=== PATIENT | female | born 2000 | race Caucasian/White ===

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

== ENCOUNTER 2020-09-03 04:09 | Emergency (ER) | payer OTHER ==
[2020-09-03 04:35] VITALS: BP 131/85; PULSE 89; RESP 16; TEMP 99.3
[2020-09-03] MEDS ORDERED: SODIUM CHLORIDE 0.9% 1,000 ML IV STA (04:37)
--- NOTE | 2020-09-03 04:38 | ED ---
Overdose HPI - General Chief Complaint: Overdose Stated Complaint: overdose Time Seen by Provider: 09/03/20 04:35 Source: patient - History of Present Illness Initial Comments: Ching is a 19yo female who presents to the emergency department today for evaluation after taking excessive Motrin. Patient reports that she's been suffering from dental pain she hasn't been able to follow up with a dentist, t his evening she been drinking alcohol she became agitated she states over the course of the evening she took 20-30 tablets of [id number] ibuprofen. Patient reports she's been feeling well and no nausea, vomiting, no seizure activity or any adverse reactions.patient adamantly denies any intent to hurt herself and states that that when she came to the ER if she became concerned because she knew she had taken too much and she was being stupid. - Related Data Home Medications Medication Instructions Recorded Confirmed Acetaminophen-Codeine 300-30mg 1 tab PO BID PRN 06/26/19 06/26/19 [Tylenol w/codeine #3] Previous Rx's Medication Instructions Recorded Ibuprofen [Motrin] 600 mg PO Q8HR PRN #20 tab 06/26/19 Penicillin V Potassium [Pen Vee K] 500 mg PO Q6H 10 Days #40 tablet 06/26/19 Allergies Allergy/AdvReac Type Severity Reaction Status Date / Time poison gladis extract Allergy Swelling Verified 06/26/19 08:55 mold AdvReac Dyspnea Verified 06/26/19 08:55 pollen extracts AdvReac Dyspnea Verified 06/26/19 08:55 Review of Systems ROS Statement: Those systems with pertinent positive or pertinent negative responses have been documented in the HPI. ROS Other: All systems not noted in ROS Statement are negative. Past Medical History Past Medical History: Asthma Additional Past Medical History / Comment(s): has two ureters with left kidney, frequent uti ,anemia History of Any Multi-Drug Resistant Organisms: None Reported Past Surgical History: No Surgical Hx Reported Past Psychological History: No Psychological Hx Reported Smoking Status: Current every day smoker, Vaper Past Alcohol Use History: Occasional Past Drug Use History: Marijuana General Exam - General Exam Comments Initial Comments: Physical Exam GENERAL: Patient is well-developed and well-nourished. Patient is nontoxic and well-hydrated and is in no distress. HENT: Normocephalic, Atraumatic. EYES: PERRL, EOMI PULMONARY: Unlabored respirations. CARDIOVASCULAR: RRR Warm and well perfused extremities ABDOMEN: Non-distended soft nontender SKIN: No rashes or bruising : Deferred NEUROLOGIC: Alert and oriented Normal speech Normal gait MUSCULOSKELETAL: Moving all extremities with no apparent injury PSYCHIATRIC: No SI/HI Course Vital Signs 09/03/20 04:26 Temperature 99.3 F Pulse Rate 89 Respiratory 16 Rate Blood Pressure 131/85 O2 Sat by Pulse 100 Oximetry Medical Decision Making - Medical Decision Making the patient was seen and evaluated, history is obtained from the patient and significant other bedside Patient admitted taking somewhere between 20 and 3200 mg ibuprofen, does admit to having had some alcohol earlier in the night denies other medications denies any intent to hurt herself Labs were obtained and lactic acid was mildly elevated no other significant acute abnormalities patient is chronically anemic Patient received IV fluids she remained asymptomatic she comfortable with plan for discharge home - Lab Data Result diagrams: 09/03/20 04:55 09/03/20 04:55 Lab Results 09/03/20 09/03/20 09/03/20 Range/Units 04:55 04:55 04:55 WBC 8.1 (4.0-11.0) k/uL RBC 4.19 (3.80-5.40) m/uL Hgb 8.8 L (11.4-16.0) gm/dL Hct 29.3 L (34.0-46.0) % MCV 70.0 L (80.0-100.0) fL MCH 21.0 L (25.0-35.0) pg MCHC 30.0 L (31.0-37.0) g/dL RDW 17.8 H (11.5-15.5) % Plt Count 272 (150-450) k/uL Neutrophils % 65 % Lymphocytes % 30 % Monocytes % 3 % Eosinophils % 0 % Basophils % 0 % Neutrophils # 5.3 (1.3-7.7) k/uL Lymphocytes # 2.4 (1.0-4.8) k/uL Monocytes # 0.2 (0-1.0) k/uL Eosinophils # 0.0 (0-0.7) k/uL Basophils # 0.0 (0-0.2) k/uL Hypochromasia Marked Poikilocytosis Slight Anisocytosis Slight Microcytosis Marked PT 10.2 (9.0-12.0) sec INR 1.0 (<1.2) Sodium (137-145) mmol/L Potassium (3.5-5.1) mmol/L Chloride (98-107) mmol/L Carbon Dioxide (22-30) mmol/L Anion Gap mmol/L BUN (7-17) mg/dL Creatinine (0.52-1.04) mg/dL Est GFR (CKD-EPI)AfAm (>60 ml/min/1.73 sqM) Est GFR (CKD-EPI)NonAf (>60 ml/min/1.73 sqM) Glucose (74-99) mg/dL Lactic Ac Sepsis Rflx Plasma Lactic Acid [place] (0.7-2.0) mmol/L Calcium (8.4-10.2) mg/dL Total Bilirubin (0.2-1.3) mg/dL AST (14-36) U/L ALT (4-34) U/L Alkaline Phosphatase (38-126) U/L Total Protein (6.3-8.2) g/dL Albumin (3.5-5.0) g/dL Lipase (23-300) U/L Urine Color Yellow Urine Appearance Cloudy H (Clear) Urine pH 5.5 (5.0-8.0) Ur Specific [place] 1.014 (1.001-1.035) Urine Protein 1+ H (Negative) Urine Glucose (UA) Negative (Negative) Urine Ketones 1+ H (Negative) Urine Blood Trace H (Negative) Urine Nitrite Negative (Negative) Urine Bilirubin Negative (Negative) Urine Urobilinogen <2.0 (<2.0) mg/dL Ur Leukocyte Esterase Negative (Negative) Urine WBC 2 (0-5) /hpf Ur Squamous Epith Cells 7 H (0-4) /hpf Hyaline Casts 17 H (0-2) /lpf Granular Casts 7 (0) /lpf Urine Mucus Many H (None) /hpf Urine HCG, Qual (Not Detectd) Salicylates mg/dL Urine Opiates Screen Not Detected (NotDetected) Ur Oxycodone Screen Not Detected (NotDetected) Urine Methadone Screen Not Detected (NotDetected) Ur Propoxyphene Screen Not Detected (NotDetected) Acetaminophen ug/mL Ur Barbiturates Screen Not Detected (NotDetected) U Tricyclic Antidepress Not Detected (NotDetected) Ur Phencyclidine Scrn Not Detected (NotDetected) Ur Amphetamines Screen Not Detected (NotDetected) U Methamphetamines Scrn Not Detected (NotDetected) U Benzodiazepines Scrn Not Detected (NotDetected) Urine Cocaine Screen Not Detected (NotDetected) U Marijuana (THC) Screen Detected H (NotDetected) Serum Alcohol mg/dL 09/03/20 09/03/20 09/03/20 Range/Units 04:55 04:55 04:55 WBC (4.0-11.0) k/uL RBC (3.80-5.40) m/uL Hgb (11.4-16.0) gm/dL Hct (34.0-46.0) % MCV (80.0-100.0) fL MCH (25.0-35.0) pg MCHC (31.0-37.0) g/dL RDW (11.5-15.5) % Plt Count (150-450) k/uL Neutrophils % % Lymphocytes % % Monocytes % % Eosinophils % % Basophils % % Neutrophils # (1.3-7.7) k/uL Lymphocytes # (1.0-4.8) k/uL Monocytes # (0-1.0) k/uL Eosinophils # (0-0.7) k/uL Basophils # (0-0.2) k/uL Hypochromasia Poikilocytosis Anisocytosis Microcytosis PT (9.0-12.0) sec INR (<1.2) Sodium 138 (137-145) mmol/L Potassium 4.2 (3.5-5.1) mmol/L Chloride 106 (98-107) mmol/L Carbon Dioxide 21 L (22-30) mmol/L Anion Gap 11 mmol/L BUN 13 (7-17) mg/dL Creatinine 0.78 (0.52-1.04) mg/dL Est GFR (CKD-EPI)AfAm >90 (>60 ml/min/1.73 sqM) Est GFR (CKD-EPI)NonAf >90 (>60 ml/min/1.73 sqM) Glucose 89 (74-99) mg/dL Lactic Ac Sepsis Rflx Plasma Lactic Acid [place] 3.3 H* (0.7-2.0) mmol/L Calcium 9.7 (8.4-10.2) mg/dL Total Bilirubin 0.5 (0.2-1.3) mg/dL AST 24 (14-36) U/L ALT 11 (4-34) U/L Alkaline Phosphatase 56 (38-126) U/L Total Protein 7.8 (6.3-8.2) g/dL Albumin 4.7 (3.5-5.0) g/dL Lipase 36 (23-300) U/L Urine Color Urine Appearance (Clear) Urine pH (5.0-8.0) Ur Specific [place] (1.001-1.035) Urine Protein (Negative) Urine Glucose (UA) (Negative) Urine Ketones (Negative) Urine Blood (Negative) Urine Nitrite (Negative) Urine Bilirubin (Negative) Urine Urobilinogen (<2.0) mg/dL Ur Leukocyte Esterase (Negative) Urine WBC (0-5) /hpf Ur Squamous Epith Cells (0-4) /hpf Hyaline Casts (0-2) /lpf Granular Casts (0) /lpf Urine Mucus (None) /hpf Urine HCG, Qual Not Detected (Not Detectd) Salicylates <1.0 mg/dL Urine Opiates Screen (NotDetected) Ur Oxycodone Screen (NotDetected) Urine Methadone Screen (NotDetected) Ur Propoxyphene Screen (NotDetected) Acetaminophen <10.0 ug/mL Ur Barbiturates Screen (NotDetected) U Tricyclic Antidepress (NotDetected) Ur Phencyclidine Scrn (NotDetected) Ur Amphetamines Screen (NotDetected) U Methamphetamines Scrn (NotDetected) U Benzodiazepines Scrn (NotDetected) Urine Cocaine Screen (NotDetected) U Marijuana (THC) Screen (NotDetected) Serum Alcohol 45 mg/dL 09/03/20 Range/Units 05:24 WBC (4.0-11.0) k/uL RBC (3.80-5.40) m/uL Hgb (11.4-16.0) gm/dL Hct (34.0-46.0) % MCV (80.0-100.0) fL MCH (25.0-35.0) pg MCHC (31.0-37.0) g/dL RDW (11.5-15.5) % Plt Count (150-450) k/uL Neutrophils % % Lymphocytes % % Monocytes % % Eosinophils % % Basophils % % Neutrophils # (1.3-7.7) k/uL Lymphocytes # (1.0-4.8) k/uL Monocytes # (0-1.0) k/uL Eosinophils # (0-0.7) k/uL Basophils # (0-0.2) k/uL Hypochromasia Poikilocytosis Anisocytosis Microcytosis PT (9.0-12.0) sec INR (<1.2) Sodium (137-145) mmol/L Potassium (3.5-5.1) mmol/L Chloride (98-107) mmol/L Carbon Dioxide (22-30) mmol/L Anion Gap mmol/L BUN (7-17) mg/dL Creatinine (0.52-1.04) mg/dL Est GFR (CKD-EPI)AfAm (>60 ml/min/1.73 sqM) Est GFR (CKD-EPI)NonAf (>60 ml/min/1.73 sqM) Glucose (74-99) mg/dL Lactic Ac Sepsis Rflx Y Plasma Lactic Acid [place] (0.7-2.0) mmol/L Calcium (8.4-10.2) mg/dL Total Bilirubin (0.2-1.3) mg/dL AST (14-36) U/L ALT (4-34) U/L Alkaline Phosphatase (38-126) U/L Total Protein (6.3-8.2) g/dL Albumin (3.5-5.0) g/dL Lipase (23-300) U/L Urine Color Urine Appearance (Clear) Urine pH (5.0-8.0) Ur Specific [place] (1.001-1.035) Urine Protein (Negative) Urine Glucose (UA) (Negative) Urine Ketones (Negative) Urine Blood (Negative) Urine Nitrite (Negative) Urine Bilirubin (Negative) Urine Urobilinogen (<2.0) mg/dL Ur Leukocyte Esterase (Negative) Urine WBC (0-5) /hpf Ur Squamous Epith Cells (0-4) /hpf Hyaline Casts (0-2) /lpf Granular Casts (0) /lpf Urine Mucus (None) /hpf Urine HCG, Qual (Not Detectd) Salicylates mg/dL Urine Opiates Screen (NotDetected) Ur Oxycodone Screen (NotDetected) Urine Methadone Screen (NotDetected) Ur Propoxyphene Screen (NotDetected) Acetaminophen ug/mL Ur Barbiturates Screen (NotDetected) U Tricyclic Antidepress (NotDetected) Ur Phencyclidine Scrn (NotDetected) Ur Amphetamines Screen (NotDetected) U Methamphetamines Scrn (NotDetected) U Benzodiazepines Scrn (NotDetected) Urine Cocaine Screen (NotDetected) U Marijuana (THC) Screen (NotDetected) Serum Alcohol mg/dL - EKG Data -: EKG Interpreted by Me EKG Comments: EKG was obtained due to complaint of overdose EKG obtained at 5:03 AM, rate is 83 rhythm is sinus tachycardia normal axis, normal intervals, SC 1:30, conversant 6 QTC [address] elevations or depressions no evidence of acute ischemia infarction or arrhythmia Disposition Clinical Impression: Motrin overdose Disposition: HOME SELF-CARE Condition: Stable Instructions (If sedation given, give patient instructions): Adult Overdose (ED) Is patient prescribed a controlled substance at d/c from ED?: No Referrals: None,Stated [Primary Care Provider] - 1-2 days
[2020-09-03 05:09] LABS: Appearance,Urine Cloudy (Clear); Bilirubin,Urine Negative (Negative); Blood,Urine Trace (Negative); Color,Urine Yellow; Glucose,Urine (UA) Negative (Negative); Granular Casts,Urine 7 /lpf (0); Hyaline Casts,Urine 17 /lpf (0-2); Ketones,Urine 1+ (Negative); Leukocyte Esterase,Urine Negative (Negative); Mucus,Urine Many /hpf; Nitrite,Urine Negative (Negative); PH, Urine 5.5 (5.0-8.0); Protein,Urine 1+ (Negative); Specific Gravity,Urine 1.014 (1.001-1.035); Squamous Epithelial Cell,Urine 7 /hpf (0-4); Urobilinogen,Urine <2.0 mg/dL (<2.0); WBC,Urine 2 /hpf (0-5)
[2020-09-03 05:17] LABS: ALT 11 U/L (4-34); AST 24 U/L (14-36); Acetaminophen <10.0 ug/mL; African American GFR (CKD) >90 (>60 ml/min/1.73 sqM); Albumin 4.7 g/dL (3.5-5.0); Alcohol 45 mg/dL; Alkaline Phosphatase 56 U/L (38-126); Anion Gap 11 mmol/L; Blood Urea Nitrogen 13 mg/dL (7-17); Calcium 9.7 mg/dL (8.4-10.2); Carbon Dioxide 21 mmol/L (22-30); Chloride 106 mmol/L (98-107); Glucose 89 mg/dL (74-99); Lipase 36 U/L (23-300); Non-African American GFR(CKD) >90 (>60 ml/min/1.73 sqM); Potassium 4.2 mmol/L (3.5-5.1); Salicylate <1.0 mg/dL; Sodium 138 mmol/L (137-145); Total Bilirubin 0.5 mg/dL (0.2-1.3); Total Protein 7.8 g/dL (6.3-8.2)
[2020-09-03 05:18] LABS: Amphetamine Screen,Urine Not Detected (NotDetected); Barbiturate Screen,Urine Not Detected (NotDetected); Benzodiazepines Screen,Urine Not Detected (NotDetected); Cocaine Screen,Urine Not Detected (NotDetected); Methadone Screen, Urine Not Detected (NotDetected); Opiate Screen,Urine Not Detected (NotDetected); Oxycodone Screen, Urine Not Detected (NotDetected); Phencyclidine Screen,Urine Not Detected (NotDetected); Tricyclic Antidepressant,Urine Not Detected (NotDetected); Urn Cannabinoid Scrn Detected (NotDetected)
[2020-09-03 05:21] LABS: Prothrombin Time 10.2 sec (9.0-12.0)
[2020-09-03 05:29] LABS: Anisocytosis Slight; Basophils % (A) 0 %; Eosinophils % (A) 0 %; HCT 29.3 % (34.0-46.0); HGB 8.8 gm/dL (11.4-16.0); Hypochromasia Marked; Lymphocytes # (A) 2.4 k/uL (1.0-4.8); Lymphocytes % (A) 30 %; Mean Platelet Volume 7.7; Microcytosis Marked; Monocytes # (A) 0.2 k/uL (0-1.0); Monocytes % (A) 3 %; Neutrophils # (A) 5.3 k/uL (1.3-7.7); Neutrophils % (A) 65 %; Platelet Count 272 k/uL (150-450); Poikilocytosis Slight; RBC 4.19 m/uL (3.80-5.40); RDW 17.8 % (11.5-15.5); WBC 8.1 k/uL (4.0-11.0)
== END 2020-09-03 06:10 | disposition home or self-care (01) ==
LOC: EC 04:09
DX: T39.311A Poisoning by propionic acid derivatives, accidental (unintentional), initial encounter (principal); D64.9 Anemia, unspecified; R74.02 Elevation of levels of lactic acid dehydrogenase [LDH]; F17.290 Nicotine dependence, other tobacco product, uncomplicated; Z91.048 Other nonmedicinal substance allergy status
CPT/HCPCS: 36415; 80053; 80306; 80320; 80329; 81001; 81025; 83520; 83605; 83690; 85025; 85610; 93005; 96360; 99284

== ENCOUNTER 2020-10-02 16:22 | Emergency (ER) | payer OTHER ==
[2020-10-02 16:38] VITALS: BP 112/75; PULSE 107; RESP 18; TEMP 98.9
[2020-10-02] MEDS ORDERED: FLUCONAZOLE 150 MG TAB PO STA (18:48)
[2020-10-02] MEDS ORDERED: metroNIDAZOLE 500 MG TAB PO STA (18:49)
[2020-10-02] MEDS ORDERED: KETOROLAC 15 MG/ML 1 ML VIAL IM STA (18:52)
--- NOTE | 2020-10-02 18:52 | ED ---
Female Urogenital HPI - General Chief complaint: Urogenital Stated complaint: Female Time Seen by Provider: 10/02/20 17:37 Source: patient Mode of arrival: ambulatory Limitations: no limitations - History of Present Illness Initial comments: Patient is a 19-year-old female with past medical history of asthma who presents emergency Department with reported vaginal discharge. Patient states she is concerned for yeast or bacterial vaginosis. States she's had significant crampy white discharge with an odor. Wants to be tested for sexy transmitted infections however does not believe she has any. Patient denies dysuria, hematuria or difficulty voiding. Denies any constipation, diarrhea, melenic stools or hematochezia. No concern for . Patient is also requesting iron studies that she has a history of anemia. Does not have a primary care doctor. No other alleviating, Perceptin or modifying factors - Related Data Home Medications Medication Instructions Recorded Confirmed Acetaminophen-Codeine 300-30mg 1 tab PO BID PRN 06/26/19 06/26/19 [Tylenol w/codeine #3] Previous Rx's Medication Instructions Recorded Ibuprofen [Motrin] 600 mg PO Q8HR PRN #20 tab 06/26/19 Penicillin V Potassium [Pen Vee K] 500 mg PO Q6H 10 Days #40 tablet 06/26/19 Fluconazole [Diflucan] 150 mg PO DAILY #2 tab 10/02/20 Fluconazole [Diflucan] 150 mg PO DAILY #2 tab 10/02/20 metroNIDAZOLE [Flagyl] 500 mg PO BID #14 tab 10/02/20 Allergies Allergy/AdvReac Type Severity Reaction Status Date / Time poison gladis extract Allergy Swelling Verified 06/26/19 08:55 mold AdvReac Dyspnea Verified 06/26/19 08:55 pollen extracts AdvReac Dyspnea Verified 06/26/19 08:55 Review of Systems ROS Statement: Those systems with pertinent positive or pertinent negative responses have been documented in the HPI. ROS Other: All systems not noted in ROS Statement are negative. Past Medical History Past Medical History: Asthma Additional Past Medical History / Comment(s): has two ureters with left kidney, frequent uti ,anemia History of Any Multi-Drug Resistant Organisms: None Reported Past Surgical History: No Surgical Hx Reported Past Psychological History: No Psychological Hx Reported Smoking Status: Current every day smoker, Vaper Past Alcohol Use History: Occasional Past Drug Use History: Marijuana General Exam Limitations: no limitations Course Vital Signs 10/02/20 16:35 Temperature 98.9 F Pulse Rate 107 H Respiratory 18 Rate Blood Pressure 112/75 O2 Sat by Pulse 99 Oximetry Medical Decision Making - Medical Decision Making On arrival patient is placed into room 16. A thorough history and physical exam was performed. Pelvic exam was performed and cultures were taken patient is negative for Trichomonas. Urinalysis is not a clean catch. Patient is given a dose of Flagyl and Diflucan in the emergency department. Patient will be placed on 7 days worth of Flagyl. Instructed not to drink while taking it. Patient is also requesting additional dose of Diflucan to be taken at the end of her antibiotic course. This is also supplied to the patient. Instructed follow up with her primary care physician for iron studies. Return to the emergency room for any new or worsening symptoms per patient agreed to this and she was discharged home in stable condition - Lab Data Lab Results 10/02/20 10/02/20 10/02/20 Range/Units 18:32 18:32 18:52 Urine Color Yellow Urine Appearance Cloudy H (Clear) Urine pH 7.0 (5.0-8.0) Ur Specific [place] 1.022 (1.001-1.035) Urine Protein Trace H (Negative) Urine Glucose (UA) Negative (Negative) Urine Ketones Negative (Negative) Urine Blood Negative (Negative) Urine Nitrite Negative (Negative) Urine Bilirubin Negative (Negative) Urine Urobilinogen <2.0 (<2.0) mg/dL Ur Leukocyte Esterase Large H (Negative) Urine RBC 2 (0-5) /hpf Urine WBC 4 (0-5) /hpf Ur Squamous Epith Cells 31 H (0-4) /hpf Urine Bacteria Occasional H (None) /hpf Urine Mucus Occasional H (None) /hpf Urine HCG, Qual Not Detected (Not Detectd) Trichomonas Ag (Rapid) Negative (Negative) Disposition Clinical Impression: Vaginal discharge, Sherrell vaginitis, Bacterial vaginosis Disposition: HOME SELF-CARE Condition: Stable Instructions (If sedation given, give patient instructions): Vaginal Discharge (ED) Additional Instructions: We will call you with any culture results that come back positive. Please follow-up with your primary care doctor. Return to the emergency room for any new or worsening symptoms Prescriptions: Fluconazole [Diflucan] 150 mg PO DAILY #2 tab Fluconazole [Diflucan] 150 mg PO DAILY #2 tab metroNIDAZOLE [Flagyl] 500 mg PO BID #14 tab Is patient prescribed a controlled substance at d/c from ED?: No Referrals: None,Stated [Primary Care Provider] - 1-2 days Time of Disposition: 19:25
[2020-10-02 19:11] LABS: Appearance,Urine Cloudy (Clear); Bacteria,Urine Occasional /hpf; Bilirubin,Urine Negative (Negative); Blood,Urine Negative (Negative); Color,Urine Yellow; Glucose,Urine (UA) Negative (Negative); Ketones,Urine Negative (Negative); Leukocyte Esterase,Urine Large (Negative); Mucus,Urine Occasional /hpf; Nitrite,Urine Negative (Negative); Protein,Urine Trace (Negative); RBC,Urine 2 /hpf (0-5); Specific Gravity,Urine 1.022 (1.001-1.035); Squamous Epithelial Cell,Urine 31 /hpf (0-4); Urobilinogen,Urine <2.0 mg/dL (<2.0); WBC,Urine 4 /hpf (0-5)
[2020-10-03 14:48] LABS: C. trachomatis,PCR Negative (Neg,Equiv); Chlamydia trachomatis Source Vagina; N. gonorrhoeae,PCR Negative (Neg,Equiv); Neisseria Source Vagina
== END 2020-10-02 19:41 | disposition home or self-care (01) ==
LOC: EC 16:22
DX: B37.3 Candidiasis of vulva and vagina (principal); N76.0 Acute vaginitis; F17.290 Nicotine dependence, other tobacco product, uncomplicated; Z91.048 Other nonmedicinal substance allergy status
CPT/HCPCS: 81001; 81025; 87808; 87491; 87591; 87070; 99283; 96372; J1885

== ENCOUNTER 2021-08-11 18:17 | Emergency (ER) | payer OTHER ==
[2021-08-11 18:56] VITALS: BP 98/55; PULSE 74; RESP 20; TEMP 98.6
[2021-08-11] MEDS ORDERED: BUPIVACAINE (PF) 0.5% 30 ML VIAL SQ STA (20:17)
[2021-08-11] MEDS ORDERED: ACET/COD 300 MG/30 MG STARTER PACK 6 TAB BTL PO STA (20:18)
[2021-08-11] MEDS ORDERED: PENICILLIN VK 500MG STARTER 4 TAB BTL PO STA (20:18)
[2021-08-11] MEDS ORDERED: LIDOCAINE 1% INJ 10MG/ML (20 ML MDV) SQ ONE (20:21)
--- NOTE | 2021-08-11 20:23 | ED ---
General Adult HPI - General Chief complaint: Dental/Oral Stated complaint: tooth pain Time Seen by Provider: 08/11/21 19:53 Source: patient, RN notes reviewed Mode of arrival: ambulatory Limitations: no limitations - History of Present Illness Initial comments: 20-year-old female presents to the emergency room for a chief complaint of dental pain. Patient reports she has had a fractured tooth for months. States that a month ago it started hurting. Patient states she is going to try to get into the dentist this week but hasn't yet. Patient is taking Motrin and Tylenol for pain and it is no longer helping. Patient is requesting a dental block and antibiotics.Patient has no other complaints at this time including shortness of breath, chest pain, abdominal pain, nausea or vomiting, headache, or visual changes. - Related Data Home Medications Medication Instructions Recorded Confirmed Acetaminophen-Codeine 300-30mg 1 tab PO BID PRN 06/26/19 06/26/19 [Tylenol w/codeine #3] Previous Rx's Medication Instructions Recorded Ibuprofen [Motrin] 600 mg PO Q8HR PRN #20 tab 06/26/19 Penicillin V Potassium [Pen Vee K] 500 mg PO Q6H 10 Days #40 tablet 06/26/19 Fluconazole [Diflucan] 150 mg PO DAILY #2 tab 10/02/20 Fluconazole [Diflucan] 150 mg PO DAILY #2 tab 10/02/20 metroNIDAZOLE [Flagyl] 500 mg PO BID #14 tab 10/02/20 Penicillin V Potassium [Pen Vee K] 500 mg PO Q6H 10 Days #40 tablet 08/11/21 Allergies Allergy/AdvReac Type Severity Reaction Status Date / Time poison gladis extract Allergy Swelling Verified 08/11/21 18:56 mold AdvReac Dyspnea Verified 08/11/21 18:56 pollen extracts AdvReac Dyspnea Verified 08/11/21 18:56 Review of Systems ROS Statement: Those systems with pertinent positive or pertinent negative responses have been documented in the HPI. ROS Other: All systems not noted in ROS Statement are negative. Past Medical History Past Medical History: Asthma Additional Past Medical History / Comment(s): has two ureters with left kidney, frequent uti ,anemia History of Any Multi-Drug Resistant Organisms: None Reported Past Surgical History: No Surgical Hx Reported Past Psychological History: No Psychological Hx Reported Smoking Status: Current every day smoker, Vaper Past Alcohol Use History: Occasional Past Drug Use History: Marijuana General Exam Limitations: no limitations General appearance: alert, in no apparent distress Head exam: Present: atraumatic Eye exam: Present: normal appearance, PERRL, EOMI. Absent: scleral icterus, conjunctival injection ENT exam: Present: normal exam, mucous membranes moist. Absent: normal oropharynx (Fractured tooth 14 noted) Neck exam: Present: normal inspection, full ROM Respiratory exam: Present: normal lung sounds bilaterally. Absent: respiratory distress, wheezes Cardiovascular Exam: Present: regular rate, normal rhythm, normal heart sounds Course Vital Signs 08/11/21 18:54 Temperature 98.6 F Pulse Rate 74 Respiratory 20 Rate Blood Pressure 98/55 O2 Sat by Pulse 97 Oximetry Procedures - Nerve Block Consent Obtained: verbal consent Local Anesthetic Used: Other (bupivicaine 0.5%) Side: left Intraoral Nerve Block: superior alveolar Procedure Successful: Yes Complications: none Patient Tolerated Procedure: well, no complications Medical Decision Making - Medical Decision Making She does have a fractured tooth 14 noted. No sublingual edema. Oropharynx is patent. Handling secretions without difficulty. No fevers or neck stiffness. Patient requested dental block which was performed. Did express pain relief. Patient was started on penicillin. She will follow up with dentist. She will return here to the emergency room. Disposition Clinical Impression: Pain, dental Disposition: HOME SELF-CARE Condition: Good Instructions (If sedation given, give patient instructions): Toothache (ED) Additional Instructions: Take antibiotic as directed. Take Motrin and Tylenol for pain. If pain is severe take Tylenol [address] machinery while taking this. Follow-up with dentist as soon as possible. Return to the emergency room for any worsening symptoms. [facility] [address] (existing clients only) New clients: [phone] 1st consult: $50 (includes XRs) Usually 30% less than private dentist for visits after. [employer] Have to pay $50 for Xrays and rest is covered [phone] Prescriptions: Penicillin V Potassium [Pen Vee K] 500 mg PO Q6H 10 Days #40 tablet Is patient prescribed a controlled substance at d/c from ED?: No Referrals: Chucky Frausto MD [STAFF PHYSICIAN] - 1-2 days Time of Disposition: 20:43
== END 2021-08-11 20:49 | disposition home or self-care (01) ==
LOC: EC 18:17
DX: K08.89 Other specified disorders of teeth and supporting structures (principal); J45.909 Unspecified asthma, uncomplicated; F17.290 Nicotine dependence, other tobacco product, uncomplicated; F12.90 Cannabis use, unspecified, uncomplicated; Z79.1 Long term (current) use of non-steroidal anti-inflammatories (NSAID)
CPT/HCPCS: 64450; 99282; J2001

== ENCOUNTER 2023-11-07 17:21 | Observation (INO) | payer OTHER ==
[2023-11-07 17:49] VITALS: RESP 18
[2023-11-07] MEDS ORDERED: SODIUM CHLORIDE 0.9% 1,000 ML IV STA (18:06)
--- NOTE | 2023-11-07 18:11 | ED ---
General Adult HPI - General Source: patient Mode of arrival: ambulatory Limitations: no limitations <Ayaan Mccabe - Last Filed: 11/07/23 22:23> <Dominique Jacobs - Last Filed: 11/08/23 23:40> - General Chief complaint: Seizure Stated complaint: Seizure Time Seen by Provider: 11/07/23 17:24 - History of Present Illness Initial comments: 22-year-old female presents with a chief complaint of seizure activity. Per p betty, has recently started using crack cocaine. States that she smoked some crack cocaine earlier and reportedly felt well after that. At around 4:30. She reports smoking more. States that she smoked more than her initial experience. States while smoking crack cocaine her friend said her eyes rolled back and she started shaking. States that this lasted for approximately a minute. Noted s ome confusion after that. However patient reports that she is now almost back to baseline. Patient does not recall this. States unable to recall the events shortly after this as well. States otherwise is been feeling well over the past few days. Currently denies any symptoms. No other complaints. She has no history of seizures in the past. (Ayaan Mccabe) - Related Data Home Medications Medication Instructions Recorded Confirmed No Known Home Medications 11/07/23 11/07/23 Allergies Allergy/AdvReac Type Severity Reaction Status Date / Time poison gladis extract Allergy Swelling Verified 11/07/23 21:05 mold AdvReac Dyspnea Verified 11/07/23 21:05 pollen extracts AdvReac Dyspnea Verified 11/07/23 21:05 Review of Systems ROS Other: All systems not noted in ROS Statement are negative. <Ayaan Mccabe - Last Filed: 11/07/23 22:23> ROS Other: All systems not noted in ROS Statement are negative. <Dominique Jacobs - Last Filed: 11/08/23 23:40> ROS Statement: Those systems with pertinent positive or pertinent negative responses have been documented in the HPI. Past Medical History Past Medical History: Asthma Additional Past Medical History / Comment(s): has two ureters with left kidney, frequent uti ,anemia History of Any Multi-Drug Resistant Organisms: None Reported Past Surgical History: No Surgical Hx Reported Past Psychological History: No Psychological Hx Reported Smoking Status: Current every day smoker, Vaper Past Alcohol Use History: Occasional Past Drug Use History: Marijuana <Ayaan Mccabe - Last Filed: 11/07/23 22:23> General Exam Limitations: no limitations General appearance: alert, in no apparent distress Eye exam: Present: PERRL, EOMI, other (Pupils dilated at 7 mm however responsive) ENT exam: Present: mucous membranes moist Neck exam: Present: normal inspection Respiratory exam: Present: normal lung sounds bilaterally Cardiovascular Exam: Present: regular rate, normal rhythm GI/Abdominal exam: Present: soft (No Tenderness to palpation. No rebound guarding or rigidity.) Extremities exam: Present: normal inspection Neurological exam: Present: alert, oriented X3, CN II-XII intact (Finger to nose, heel to zee, rapid alternating hand movements intact) Psychiatric exam: Present: anxious Skin exam: Present: warm, dry <Ayaan Mccabe - Last Filed: 11/07/23 22:23> Course Vital Signs 11/07/23 11/07/23 11/08/23 17:27 20:00 09:11 Temperature 97.8 F 96.8 F L 97.9 F Pulse Rate 110 H 104 H 96 Respiratory 18 18 18 Rate Blood Pressure 124/78 114/72 112/68 O2 Sat by Pulse 95 98 99 Oximetry 11/08/23 14:22 Temperature 97.9 F Pulse Rate 86 Respiratory 18 Rate Blood Pressure 136/78 O2 Sat by Pulse 97 Oximetry Medical Decision Making - Lab Data Result diagrams: 11/07/23 18:19 11/07/23 18:19 <Ayaan Mccabe - Last Filed: 11/07/23 22:23> - Lab Data Result diagrams: 11/07/23 18:19 11/07/23 18:19 <Dominique Jacobs - Last Filed: 11/08/23 23:40> - Medical Decision Making Was pt. sent in by a medical professional or institution (, PA, [facility], urgent care, hospital, or care home...) When possible be specific @ -No Did you speak to anyone other than the patient for history (EMS, parent, family, police, friend...)? What history was obtained from this source @ -No Did you review nursing and triage notes (agree or disagree)? Why? @ -I reviewed and agree with nursing and triage notes Were old charts reviewed (outside hosp., previous admission, EMS record, old EKG, old radiological studies, urgent care reports/EKG's, care home records)? Report findings @ -No old charts were reviewed Differential Diagnosis (chest pain, altered mental status, abdominal pain women, abdominal pain men, vaginal bleeding, weakness, fever, dyspnea, syncope, headache, dizziness, GI bleed, back pain, seizure, CVA, palpatations, mental health, musculoskeletal)? @ -Differential Seizure: Recurrent seizure disorder, febrile seizure, alcohol withdrawal, stimulants, meningitis, encephalitis, intercranial hemorrhage, intracranial tumor, stroke, eclampsia, thyrotoxicosis, hypocalcemia, hyponatremia, hypernatremia, hypomagnesemia, psychogenic, this is not meant to be an all-inclusive list. EKG interpreted by me (3pts min.). @ -As above X-rays interpreted by me (1pt min.). @ -None done CT interpreted by me (1pt min.). @ -CT brain interpreted by me show no evidence of acute finding. U/S interpreted by me (1pt. min.). @ -None done What testing was considered but not performed or refused? (CT, X-rays, U/S, labs)? Why? @ -None What meds were considered but not given or refused? Why? @ -None Did you discuss the management of the patient with other professionals (professionals i.e. , PA, [facility], lab, RT, psych nurse, social sciences professor, burglar alarm assembler, teacher, child support case officer, transplant case manager)? Give summary @ -Case discussed with Dr. Damico, who is in agreement with consult. Case discussed with Dr. Cochran, who accepts admission to observation. Was smoking cessation discussed for >3mins.? @ -No Was critical care preformed (if so, how long)? @ -No Were there social determinants of health that impacted care today? How? (Homelessness, low income, unemployed, alcoholism, drug addiction, transportation, low edu. Level, literacy, decrease access to med. care, [place] [facility], rehab)? @ -Crack cocaine use Was there de-escalation of care discussed even if they declined (Discuss DNR or withdrawal of care, Hospice)? DNR status @ -No What co-morbidities impacted this encounter? (DM, HTN, Smoking, COPD, CAD, Cancer, CVA, ARF, Chemo, Hep., AIDS, mental health diagnosis, sleep apnea, morbid obesity)? @ -Crack cocaine use Was patient admitted / discharged? Hospital course, mention meds given and route, prescriptions, significant lab abnormalities, going to OR and other pertinent info. @ -Admission 22-year-old female with no past medical history presented to the ED with chief complaint of seizure. Patient smoked crack cocaine today. States that she felt well after smoking her initial dose so she states continued to smoke more. While she was smoking, per friend patient's eyes rolled back and she seizure like activity. Exam finding significant for evidence of intraoral trauma with lacerations of the lip and tongue. Neurologic exam at this time unremarkable. Laboratory studies reviewed. CBC significant for a white blood cell count at 11.2. Neutrophils elevated at 8.4. Lactic acid elevated at 6.1. UA un remarkable. Toxicology screen shows positive for benzodiazepines, cocaine, THC. Alcohol less than 10. Urine hCG negative. Undiagnosed new problem with uncertain prognosis? @ -No Drug Therapy requiring intensive monitoring for toxicity (Heparin, Nitro, Insulin, Cardizem)? @ -No Were any procedures done? @ -No Diagnosis/symptom? @ -New onset seizure Acute, or Chronic, or Acute on Chronic? @ -Acute Uncomplicated (without systemic symptoms) or Complicated (systemic symptoms)? @ -Complicated Side effects of treatment? @ -No Exacerbation, Progression, or Severe Exacerbation? @ -No Poses a threat to life or bodily function? How? (Chest pain, [place], CO, pneumonia, PE, COPD, DKA, ARF, appy, cholecystitis, CVA, Diverticulitis, Homicidal, Suicidal, threat to staff... and all critical care pts) @ -No (Ayaan Mccabe) - Lab Data Lab Results 11/07/23 11/07/23 11/07/23 Range/Units 18:19 18:19 18:19 WBC 11.2 H (3.8-10.6) k/uL RBC 3.85 (3.80-5.40) m/uL Hgb 11.7 (11.4-16.0) gm/dL Hct 34.7 (34.0-46.0) % MCV 90.1 (80.0-100.0) fL MCH 30.5 (25.0-35.0) pg MCHC 33.8 (31.0-37.0) g/dL RDW 15.0 (11.5-15.5) % Plt Count 185 (150-450) k/uL MPV 9.4 Neutrophils % 76 % Lymphocytes % 19 % Monocytes % 4 % Eosinophils % 0 % Basophils % 0 % Neutrophils # 8.4 H (1.3-7.7) k/uL Lymphocytes # 2.1 (1.0-4.8) k/uL Monocytes # 0.4 (0-1.0) k/uL Eosinophils # 0.0 (0-0.7) k/uL Basophils # 0.0 (0-0.2) k/uL Sodium 137 (137-145) mmol/L Potassium 3.9 (3.5-5.1) mmol/L Chloride 104 (98-107) mmol/L Carbon Dioxide 18 L (22-30) mmol/L Anion Gap 15 mmol/L BUN 12 (7-17) mg/dL Creatinine 0.59 (0.52-1.04) mg/dL Est GFR (CKD-EPI)AfAm >90 (>60 ml/min/1.73 sqM) Est GFR (CKD-EPI)NonAf >90 (>60 ml/min/1.73 sqM) Glucose 107 H (74-99) mg/dL Lactic Ac Sepsis Rflx Plasma Lactic Acid [place]arian (0.7-2.0) mmol/L Calcium 9.5 (8.4-10.2) mg/dL Magnesium 2.0 (1.6-2.3) mg/dL Total Bilirubin 0.4 (0.2-1.3) mg/dL AST 27 (14-36) U/L ALT 28 (4-34) U/L Alkaline Phosphatase 55 (38-126) U/L Ammonia (<30) umol/L Total Protein 7.4 (6.3-8.2) g/dL Albumin 4.6 (3.5-5.0) g/dL Urine Color Urine Appearance (Clear) Urine pH (5.0-8.0) Ur Specific [place] (1.001-1.035) Urine Protein (Negative) Urine Glucose (UA) (Negative) Urine Ketones (Negative) Urine Blood (Negative) Urine Nitrite (Negative) Urine Bilirubin (Negative) Urine Urobilinogen (<2.0) mg/dL Ur Leukocyte Esterase (Negative) Urine RBC (0-5) /hpf Urine WBC (0-5) /hpf Urine Mucus (None) /hpf Urine HCG, Qual (Not Detectd) Salicylates <1.0 mg/dL Urine Opiates Screen Not Detected (NotDetected) Ur Oxycodone Screen Not Detected (NotDetected) Urine Methadone Screen Not Detected (NotDetected) Acetaminophen <10.0 ug/mL Ur Barbiturates Screen Not Detected (NotDetected) U Tricyclic Antidepress Not Detected (NotDetected) Ur Phencyclidine Scrn Not Detected (NotDetected) Ur Amphetamines Screen Not Detected (NotDetected) U Methamphetamines Scrn Not Detected (NotDetected) U Benzodiazepines Scrn Detected H (NotDetected) [place] <0.2 mmol/L Urine Cocaine Screen Detected H (NotDetected) U Marijuana (THC) Screen Detected H (NotDetected) Serum Alcohol <10 mg/dL 11/07/23 11/07/23 11/07/23 Range/Units 18:19 18:19 18:45 WBC (3.8-10.6) k/uL RBC (3.80-5.40) m/uL Hgb (11.4-16.0) gm/dL Hct (34.0-46.0) % MCV (80.0-100.0) fL MCH (25.0-35.0) pg MCHC (31.0-37.0) g/dL RDW (11.5-15.5) % Plt Count (150-450) k/uL MPV Neutrophils % % Lymphocytes % % Monocytes % % Eosinophils % % Basophils % % Neutrophils # (1.3-7.7) k/uL Lymphocytes # (1.0-4.8) k/uL Monocytes # (0-1.0) k/uL Eosinophils # (0-0.7) k/uL Basophils # (0-0.2) k/uL Sodium (137-145) mmol/L Potassium (3.5-5.1) mmol/L Chloride (98-107) mmol/L Carbon Dioxide (22-30) mmol/L Anion Gap mmol/L BUN (7-17) mg/dL Creatinine (0.52-1.04) mg/dL Est GFR (CKD-EPI)AfAm (>60 ml/min/1.73 sqM) Est GFR (CKD-EPI)NonAf (>60 ml/min/1.73 sqM) Glucose (74-99) mg/dL Lactic Ac Sepsis Rflx Y Plasma Lactic Acid [place]arian 6.1 H* (0.7-2.0) mmol/L Calcium (8.4-10.2) mg/dL Magnesium (1.6-2.3) mg/dL Total Bilirubin (0.2-1.3) mg/dL AST (14-36) U/L ALT (4-34) U/L Alkaline Phosphatase (38-126) U/L Ammonia <9 (<30) umol/L Total Protein (6.3-8.2) g/dL Albumin (3.5-5.0) g/dL Urine Color Colorless Urine Appearance Clear (Clear) Urine pH 5.5 (5.0-8.0) Ur Specific [place] 1.008 (1.001-1.035) Urine Protein Negative (Negative) Urine Glucose (UA) Negative (Negative) Urine Ketones Trace H (Negative) Urine Blood Moderate H (Negative) Urine Nitrite Negative (Negative) Urine Bilirubin Negative (Negative) Urine Urobilinogen <2.0 (<2.0) mg/dL Ur Leukocyte Esterase Negative (Negative) Urine RBC 1 (0-5) /hpf Urine WBC <1 (0-5) /hpf Urine Mucus Rare H (None) /hpf Urine HCG, Qual (Not Detectd) Salicylates mg/dL Urine Opiates Screen (NotDetected) Ur Oxycodone Screen (NotDetected) Urine Methadone Screen (NotDetected) Acetaminophen ug/mL Ur Barbiturates Screen (NotDetected) U Tricyclic Antidepress (NotDetected) Ur Phencyclidine Scrn (NotDetected) Ur Amphetamines Screen (NotDetected) U Methamphetamines Scrn (NotDetected) U Benzodiazepines Scrn (NotDetected) [place] mmol/L Urine Cocaine Screen (NotDetected) U Marijuana (THC) Screen (NotDetected) Serum Alcohol mg/dL 11/07/23 Range/Units 19:25 WBC (3.8-10.6) k/uL RBC (3.80-5.40) m/uL Hgb (11.4-16.0) gm/dL Hct (34.0-46.0) % MCV (80.0-100.0) fL MCH (25.0-35.0) pg MCHC (31.0-37.0) g/dL RDW (11.5-15.5) % Plt Count (150-450) k/uL MPV Neutrophils % % Lymphocytes % % Monocytes % % Eosinophils % % Basophils % % Neutrophils # (1.3-7.7) k/uL Lymphocytes # (1.0-4.8) k/uL Monocytes # (0-1.0) k/uL Eosinophils # (0-0.7) k/uL Basophils # (0-0.2) k/uL Sodium (137-145) mmol/L Potassium (3.5-5.1) mmol/L Chloride (98-107) mmol/L Carbon Dioxide (22-30) mmol/L Anion Gap mmol/L BUN (7-17) mg/dL Creatinine (0.52-1.04) mg/dL Est GFR (CKD-EPI)AfAm (>60 ml/min/1.73 sqM) Est GFR (CKD-EPI)NonAf (>60 ml/min/1.73 sqM) Glucose (74-99) mg/dL Lactic Ac Sepsis Rflx Plasma Lactic Acid [place] (0.7-2.0) mmol/L Calcium (8.4-10.2) mg/dL Magnesium (1.6-2.3) mg/dL Total Bilirubin (0.2-1.3) mg/dL AST (14-36) U/L ALT (4-34) U/L Alkaline Phosphatase (38-126) U/L Ammonia (<30) umol/L Total Protein (6.3-8.2) g/dL Albumin (3.5-5.0) g/dL Urine Color Urine Appearance (Clear) Urine pH (5.0-8.0) Ur Specific [place] (1.001-1.035) Urine Protein (Negative) Urine Glucose (UA) (Negative) Urine Ketones (Negative) Urine Blood (Negative) Urine Nitrite (Negative) Urine Bilirubin (Negative) Urine Urobilinogen (<2.0) mg/dL Ur Leukocyte Esterase (Negative) Urine RBC (0-5) /hpf Urine WBC (0-5) /hpf Urine Mucus (None) /hpf Urine HCG, Qual Not Detected (Not Detectd) Salicylates mg/dL Urine Opiates Screen (NotDetected) Ur Oxycodone Screen (NotDetected) Urine Methadone Screen (NotDetected) Acetaminophen ug/mL Ur Barbiturates Screen (NotDetected) U Tricyclic Antidepress (NotDetected) Ur Phencyclidine Scrn (NotDetected) Ur Amphetamines Screen (NotDetected) U Methamphetamines Scrn (NotDetected) U Benzodiazepines Scrn (NotDetected) [place] mmol/L Urine Cocaine Screen (NotDetected) U Marijuana (THC) Screen (NotDetected) Serum Alcohol mg/dL - EKG Data EKG Comments: She shows a sinus rhythm at [address] or T-wave changes. MD 123, QRS 95, QT/QTC 383/429. (Ayaan Mccabe) Disposition <Ayaan Mccabe - Last Filed: 11/07/23 22:23> <Dominique Jacobs - Last Filed: 11/08/23 23:40> Clinical Impression: Seizure Disposition: ADMITTED IP TO THIS HOSP Condition: Fair
[2023-11-07] MEDS ORDERED: LORazepam 2 MG/ML INJ IV PRN (18:19)
[2023-11-07 18:29] LABS: Basophils % (A) 0 %; Eosinophils % (A) 0 %; HCT 34.7 % (34.0-46.0); HGB 11.7 gm/dL (11.4-16.0); Lymphocytes # (A) 2.1 k/uL (1.0-4.8); Lymphocytes % (A) 19 %; MCH 30.5 pg (25.0-35.0); MCHC 33.8 g/dL (31.0-37.0); MCV 90.1 fL (80.0-100.0); Mean Platelet Volume 9.4; Monocytes # (A) 0.4 k/uL (0-1.0); Monocytes % (A) 4 %; Neutrophils # (A) 8.4 k/uL (1.3-7.7); Neutrophils % (A) 76 %; Platelet Count 185 k/uL (150-450); RBC 3.85 m/uL (3.80-5.40); WBC 11.2 k/uL (3.8-10.6)
--- NOTE | 2023-11-07 18:29 | CT ---
EXAMINATION TYPE: CT brain wo con DATE OF EXAM: 11/07/2023 COMPARISON: None INDICATION: seizure DLP: 1110.4 mGycm, Automated exposure control for dose reduction was used. CONTRAST: None CT of the brain is performed utilizing 3 mm thick sections through the posterior fossa and 3 mm thick sections through the remaining calvarium. Study is performed within 24 hours of arrival to the hosp ital. No abnormal hyperdensity is present to suggest an acute intracranial hemorrhage. No mass lesion is evident. No acute infarcts are evident. Ventricles and sulci are appropriate for the patient age. Paranasal sinuses and mastoid air cells within the [id number] are clear. IMPRESSION: 1. No acute intracranial process. Follow-up MRI can be performed as clinically indicated.
[2023-11-07 18:44] LABS: ALT 28 U/L (4-34); AST 27 U/L (14-36); Acetaminophen <10.0 ug/mL; African American GFR (CKD) >90 (>60 ml/min/1.73 sqM); Albumin 4.6 g/dL (3.5-5.0); Alcohol <10 mg/dL; Alkaline Phosphatase 55 U/L (38-126); Anion Gap 15 mmol/L; Blood Urea Nitrogen 12 mg/dL (7-17); Calcium 9.5 mg/dL (8.4-10.2); Carbon Dioxide 18 mmol/L (22-30); Chloride 104 mmol/L (98-107); Glucose 107 mg/dL (74-99); Lithium <0.2 mmol/L; Non-African American GFR(CKD) >90 (>60 ml/min/1.73 sqM); Potassium 3.9 mmol/L (3.5-5.1); Salicylate <1.0 mg/dL; Sodium 137 mmol/L (137-145); Total Bilirubin 0.4 mg/dL (0.2-1.3); Total Protein 7.4 g/dL (6.3-8.2)
[2023-11-07 18:45] LABS: Lactic Acid, Venous 6.1 mmol/L (0.7-2.0)
[2023-11-07 19:30] LABS: Appearance,Urine Clear (Clear); Bilirubin,Urine Negative (Negative); Blood,Urine Moderate (Negative); Color,Urine Colorless; Glucose,Urine (UA) Negative (Negative); Ketones,Urine Trace (Negative); Leukocyte Esterase,Urine Negative (Negative); Mucus,Urine Rare /hpf; Nitrite,Urine Negative (Negative); PH, Urine 5.5 (5.0-8.0); Protein,Urine Negative (Negative); RBC,Urine 1 /hpf (0-5); Specific Gravity,Urine 1.008 (1.001-1.035); Urobilinogen,Urine <2.0 mg/dL (<2.0); WBC,Urine <1 /hpf (0-5)
[2023-11-07 19:52] LABS: Amphetamine Screen,Urine Not Detected (NotDetected); Barbiturate Screen,Urine Not Detected (NotDetected); Benzodiazepines Screen,Urine Detected (NotDetected); Cocaine Screen,Urine Detected (NotDetected); Methadone Screen, Urine Not Detected (NotDetected); Opiate Screen,Urine Not Detected (NotDetected); Oxycodone Screen, Urine Not Detected (NotDetected); Phencyclidine Screen,Urine Not Detected (NotDetected); Tricyclic Antidepressant,Urine Not Detected (NotDetected); Urn Cannabinoid Scrn Detected (NotDetected)
[2023-11-07] MEDS ORDERED: SODIUM CHLORIDE 0.9% 2,000 ML IV STA (21:47)
[2023-11-07] MEDS ORDERED: NICOTINE 21MG/24HR PATCH TRANSDERM STA (22:10)
[2023-11-07] MEDS ORDERED: NALOXONE 0.4 MG/ML 1 ML VIAL IV PRN (22:26)
[2023-11-07] MEDS ORDERED: SODIUM CHLORIDE 0.9% 1,000 ML IV SCH (22:30)
[2023-11-08 09:07] LABS: Glucose,Whole Blood 86 mg/dL (70-110)
[2023-11-08] MEDS ORDERED: MAG HYDROX/AL HYDROX/SIMETH 30 ML CUP PO PRN (09:12)
[2023-11-08] MEDS ORDERED: ACETAMINOPHEN TAB 325 MG TAB PO PRN (09:12)
[2023-11-08] MEDS ORDERED: KETOROLAC 15 MG/ML 1 ML VIAL IVP PRN (09:12)
[2023-11-08 09:15] VITALS: TEMP 97.9
--- NOTE | 2023-11-08 13:11 | P.CNNES ---
History of Present Illness Consult date: 11/08/23 Requesting physician: Ayaan Mccabe Reason for Consult: New onset seizure History of Present Illness: Patient is a 22-year-old female came to the hospital by ambulance yesterday at 5:21 PM for new onset seizure. Patient states that yesterday she was with her friends, and did decent amount of drugs including cocaine, alcohol. She does not normally do that much amount and she did more than usual. She also was sleep deprived for 24 hours, stressed out and in a bad state of mind. Without any warning, she passed out and woke up to EMS people around her. She bit her tongue, but did not lose control of urine. Patient was brought to the hospital by ambulance. As per EMS flow sheet, when they arrived, found patient being held upright by her friend. Her friends on the scene, patient was sitting in the chair when she had sudden loss of consciousness, muscle rigidity, tremors and apnea. Patient has never had a seizure. Patient does not take any medication daily. Patient states she has had some beer today as well as used cocaine a few hours ago. Patient was postictal at the time EMS arrived, unable to hold herself upright with some confusion. EKG showed sinus tachycardia. Patient's vitals at the scene was blood pressure 141/84, pulse rate 111, respirations 18, saturation 99% and blood glucose 135. Blood test shows WBC 11.2 hemoglobin is normal platelets normal, Chem-20 is normal, lactate was elevated 6.1. Ammonia is normal. UA negative. Urine hCG negative. Urine drug screen positive for benzodiazepine, cocaine and marijuana. Blood alcohol level negative. CT head revealed no acute process. EKG shows sinus rhythm. Patient states that she has and about few times of drug use in her life since age 19. She never had any history of seizure or syncope in the past. At present she feels fine. She wants to go home. Review of Systems Completely negative. Denies any headache or any focal symptoms. Her lips are sore from the seizure. No chest pain, abdominal pain. Past Medical History Past Medical History: Asthma Additional Past Medical History / Comment(s): has two ureters with left kidney, frequent uti ,anemia History of Any Multi-Drug Resistant Organisms: None Reported Past Surgical History: No Surgical Hx Reported Past Psychological History: No Psychological Hx Reported Smoking Status: Current every day smoker, Vaper Past Alcohol Use History: Occasional Past Drug Use History: Marijuana Medications and Allergies Home Medications Medication Instructions Recorded Confirmed Type No Known Home Medications 11/07/23 11/07/23 History Allergies Allergy/AdvReac Type Severity Reaction Status Date / Time poison gladis extract Allergy Swelling Verified 11/07/23 21:05 mold AdvReac Dyspnea Verified 11/07/23 21:05 pollen extracts AdvReac Dyspnea Verified 11/07/23 21:05 Physical Examination - Vital Signs Vital Signs: Vital Signs Temp Pulse Resp BP Pulse Ox 11/08/23 09:11 97.9 F 96 18 112/68 99 11/07/23 20:00 96.8 F L 104 H 18 114/72 98 11/07/23 17:27 97.8 F 110 H 18 124/78 95 Intake and Output 11/07/23 11/08/23 11/08/23 22:59 06:59 14:59 Other: Weight 58.967 kg Patient is a young female, very pleasant, in no acute distress. Patient is alert awake oriented to time place and person. Speech and language functions are normal. Patient can name and repeat very well. No aphasia or dy sarthria. Attention, concentration and fund of knowledge is adequate. On cranial nerve examination, pupils are equal, round and reacting to light, visual garcía are full on confrontation, with no neglect on double simultaneous stimulation. Extraocular muscles are intact with no nystagmus. Face is symmetric, tongue protrudes to the midline. Palatal elevation and sensation normal, hearing and shoulder shrug normal, facial sensation normal. Patient does have evidence of tongue bite julissa in the left posterior region of the tongue. On muscle strength testing, there is no pronator drift and the strength is normal in arms and legs distally and proximally. Deep tendon reflexes are symmetric 1+ in the arms and legs and plantars downgoing. Sensory to touch is equal with no neglect on double simultaneous stimulation. Cerebellar function showed no ataxia for [id number] testing. No dy sdiadochokinesia. No ataxia for [id number] testing on either side. Tone and bulk of muscles normal. Gait deferred.. On general examination, there is no carotid bruit or murmur, S1-S2 audible. C hest is clear on consultation. Abdomen is soft nontender. No organomegaly, bowel sounds present. Peripheral pulses are present. No peripheral edema. Results - Laboratory Findings CBC and BMP: 11/07/23 18:19 11/07/23 18:19 Abnormal Lab Findings: Abnormal Labs 11/07/23 11/07/23 11/07/23 18:19 18:19 18:19 WBC 11.2 H Neutrophils # 8.4 H Carbon Dioxide 18 L Glucose 107 H Plasma Lactic Acid Darian Urine Ketones Urine Blood Urine Mucus U Benzodiazepines Scrn Detected H Urine Cocaine Screen Detected H U Marijuana (THC) Screen Detected H 11/07/23 11/07/23 18:19 18:19 WBC Neutrophils # Carbon Dioxide Glucose Plasma Lactic Acid Darian 6.1 H* Urine Ketones Trace H Urine Blood Moderate H Urine Mucus Rare H U Benzodiazepines Scrn Urine Cocaine Screen U Marijuana (THC) Screen Assessment and Plan Assessment: * New onset seizure, provoked due to combination of consuming excessive (more than her usual) amount of cocaine, doing alcohol, and sleep deprivation. Patient's current neurological examination is normal. * Substance abuse Plan: * Patient's seizure was provoked due to reasons mentioned above. No further neurological workup is indicated. * Patient was strongly recommended to abstain from polysubstance abuse, as they could be life-threatening. * Patient was recommended to avoid sleep deprivation. * vessel slag worker consultation for referral for counseling about substance abuse. * Patient was informed of [place] state law of no driving unless seizure free for 6 months, climbing ladders, operating dangerous machinery or unsupervised swimming. Patient's [id number] was also present, who also was informed of these restrictions. * Neurologically clear for discharge. Thank you for the consult.
--- NOTE | 2023-11-08 13:33 | P.HPIM ---
History of Present Illness H&P Date: 11/08/23 Chief Complaint: Seizure-like activity * 22-year-old patient with past medical history significant for asthma presents to the emergency department after patient had seizure-like activity. Per chart review patient had started crack cocaine recently and smoke cocaine early in the day however patient continued to smoke excessively and ultimately her friend noticed that patient's eye rolled back and she started shaking. The whole episode lasted for approximately 60 seconds. Patient was noted to be confused however she immediately recovered after several minutes however p atient was unable to recall the events * At the time of presentation in ER patient was awake and alert. A CT head was obtained which was negative for acute intracranial process * Workup initiated in ER including CBC which were WBC 11.2 hemoglobin 11.7 platelet count of 185 * Serum chemistry obtained sodium 137 potassium 3.9 carbon dioxide 18 BUNs 12 creatinine 0.59 lactate of 6.1 * Urine test was obtained which was negative * Urinary traction was obtained which showed benzodiazepine, cocaine and marijuana serum alcohol level less than 10 * Patient was appropriately resuscitated in ER and was admitted with request for neurology consultation REVIEW OF SYSTEMS: Altered mental status, seizure-like activity, polysubstance use CONSTITUTIONAL: No fever, no malaise, no fatigue. HEENT: No recent visual problems or hearing problems. Denied any sore throat. CARDIOVASCULAR: No chest pain, orthopnea, PND, no palpitations, no syncope. PULMONARY: No shortness of breath, no cough, no hemoptysis. GASTROINTESTINAL: No diarrhea, no nausea, no vomiting, no abdominal pain. NEUROLOGICAL: No headaches, no weakness, no numbness. HEMATOLOGICAL: Denies any bleeding or petechiae. GENITOURINARY: Denies any burning micturition, frequency, or urgency. MUSCULOSKELETAL/RHEUMATOLOGICAL: Denies any joint pain, swelling, or any muscle pain. ENDOCRINE: Denies any polyuria or polydipsia. PHYSICAL EXAMINATION: GENERAL: The patient is alert and riented x3, not in any acute distress. Well developed, well nourished. HEENT: Pupils are round and equally reacting to light. EOMI Normocephalic, atraumatic. No pharyngeal erythema. No thyromegaly. CARDIOVASCULAR: S1 and S2 present. No murmurs, rubs, or gallops. PULMONARY: Chest is clear to auscultation, no wheezing or crackles. ABDOMEN: Soft, nontender, nondistended, normoactive bowel sounds. No palpable organomegaly. MUSCULOSKELETAL: No joint swelling or deformity. EXTREMITIES: No cyanosis, clubbing, or pedal edema. NEUROLOGICAL: Gross neurological examination did not reveal any focal deficits. SKIN: No rashes. Past Medical History Past Medical History: Asthma Additional Past Medical History / Comment(s): has two ureters with left kidney, frequent uti ,anemia History of Any Multi-Drug Resistant Organisms: None Reported Past Surgical History: No Surgical Hx Reported Past Psychological History: No Psychological Hx Reported Smoking Status: Current every day smoker, Vaper Past Alcohol Use History: Occasional Past Drug Use History: Marijuana Medications and Allergies Home Medications Medication Instructions Recorded Confirmed Type No Known Home Medications 11/07/23 11/07/23 History Allergies Allergy/AdvReac Type Severity Reaction Status Date / Time poison gladis extract Allergy Swelling Verified 11/07/23 21:05 mold AdvReac Dyspnea Verified 11/07/23 21:05 pollen extracts AdvReac Dyspnea Verified 11/07/23 21:05 Physical Exam Vitals: Vital Signs Temp Pulse Resp BP Pulse Ox 11/08/23 09:11 97.9 F 96 18 112/68 99 11/07/23 20:00 96.8 F L 104 H 18 114/72 98 11/07/23 17:27 97.8 F 110 H 18 124/78 95 Intake and Output 11/07/23 11/08/23 11/08/23 22:59 06:59 14:59 Other: Weight 58.967 kg Results CBC & Chem 7: 11/07/23 18:19 11/07/23 18:19 Labs: Abnormal Lab Results - Last 24 Hours (Table) 11/07/23 11/07/23 11/07/23 Range/Units 18:19 18:19 18:19 WBC 11.2 H (3.8-10.6) k/uL Neutrophils # 8.4 H (1.3-7.7) k/uL Carbon Dioxide 18 L (22-30) mmol/L Glucose 107 H (74-99) mg/dL Plasma Lactic Acid Darian (0.7-2.0) mmol/L Urine Ketones (Negative) Urine Blood (Negative) Urine Mucus (None) /hpf U Benzodiazepines Scrn Detected H (NotDetected) Urine Cocaine Screen Detected H (NotDetected) U Marijuana (THC) Screen Detected H (NotDetected) 11/07/23 11/07/23 Range/Units 18:19 18:19 WBC (3.8-10.6) k/uL Neutrophils # (1.3-7.7) k/uL Carbon Dioxide (22-30) mmol/L Glucose (74-99) mg/dL Plasma Lactic Acid Darian 6.1 H* (0.7-2.0) mmol/L Urine Ketones Trace H (Negative) Urine Blood Moderate H (Negative) Urine Mucus Rare H (None) /hpf U Benzodiazepines Scrn (NotDetected) Urine Cocaine Screen (NotDetected) U Marijuana (THC) Screen (NotDetected) Thrombosis Risk Factor Assmnt - DVT/VTE Prophylaxis DVT/VTE Prophylaxis: Mechanical Prophylaxis ordered Assessment and Plan Assessment: Assessment and plan * Polysubstance use with crack cocaine induced toxic encephalopathy * Acute toxic encephalopathy with seizure-like activity * Noninfectious lactic acidosis * Reactive leukocytosis * In regards to polysubstance use, social work to be consulted, continue to monitor for withdrawal use Tylenol as needed for pain, appropriate fluid resuscitation Narcan as needed for opioid reversal * In regards to acute toxic encephalopathy, CT head negative for acute intracranial process continue to monitor for withdrawal in regards to seizure- like activity neurology consulted for evaluation * in regards to reactive leukocytosis, continue with fluid resuscitation * In regards to seizure-like activity, neurology consulted * CODE STATUS is full code Time with Patient: Greater than 30
--- NOTE | 2023-11-08 13:35 | P.DS ---
Providers Date of admission: 11/07/23 22:28 Expected date of discharge: 11/08/23 Attending physician: Leatha Cochran MD Consults: 11/07/23 22:26 Consult Physician Urgent Consulting Provider: Madhu Damico Consult Reason/Comments: new onset seizure Do you want consulting provider notified?: Yes Primary care physician: Stated None Hospital Course: 22-year-old patient with past medical history significant for asthma presents to the emergency department after patient had seizure-like activity. Per chart review patient had started crack cocaine recently and smoke cocaine early in the day however patient continued to smoke excessively and ultimately her friend noticed that patient's eye rolled back and she started shaking. The whole episode lasted for approximately 60 seconds. Patient was noted to be confused however she immediately recovered after several minutes however patient was unable to recall the events * At the time of presentation in ER patient was awake and alert. A CT head was obtained which was negative for acute intracranial process * Workup initiated in ER including CBC which were WBC 11.2 hemoglobin 11.7 platelet count of 185 * Serum chemistry obtained sodium 137 potassium 3.9 carbon dioxide 18 BUNs 12 creatinine 0.59 lactate of 6.1 * Urine test was obtained which was negative * Urinary traction was obtained which showed benzodiazepine, cocaine and marijuana serum alcohol level less than 10 * Patient was appropriately resuscitated in ER and was admitted with request for neurology consultation * Patient was seen by neurology while in ED room 33 and cleared for discharge. Patient remained stable was appropriately resuscitated alert and oriented 4 at time of discharge REVIEW OF SYSTEMS: Altered mental status, seizure-like activity, polysubstance use RESOLVED CONSTITUTIONAL: No fever, no malaise, no fatigue. HEENT: No recent visual problems or hearing problems. Denied any sore throat. CARDIOVASCULAR: No chest pain, orthopnea, PND, no palpitations, no syncope. PULMONARY: No shortness of breath, no cough, no hemoptysis. GASTROINTESTINAL: No diarrhea, no nausea, no vomiting, no abdominal pain. NEUROLOGICAL: No headaches, no weakness, no numbness. HEMATOLOGICAL: Denies any bleeding or petechiae. GENITOURINARY: Denies any burning micturition, frequency, or urgency. MUSCULOSKELETAL/RHEUMATOLOGICAL: Denies any joint pain, swelling, or any muscle pain. ENDOCRINE: Denies any polyuria or polydipsia. PHYSICAL EXAMINATION: GENERAL: The patient is alert and riented x3, not in any acute distress. Well developed, well nourished. HEENT: Pupils are round and equally reacting to light. EOMI Normocephalic, atraumatic. No pharyngeal erythema. No thyromegaly. CARDIOVASCULAR: S1 and S2 present. No murmurs, rubs, or gallops. PULMONARY: Chest is clear to auscultation, no wheezing or crackles. ABDOMEN: Soft, nontender, nondistended, normoactive bowel sounds. No palpable organomegaly. MUSCULOSKELETAL: No joint swelling or deformity. EXTREMITIES: No cyanosis, clubbing, or pedal edema. NEUROLOGICAL: Gross neurological examination did not reveal any focal deficits. SKIN: No rashes. Assessment: Assessment and plan * Polysubstance use with crack cocaine induced toxic encephalopathy * Acute toxic encephalopathy with seizure-like activity * Noninfectious lactic acidosis * Reactive leukocytosis * In regards to polysubstance use, social work to be consulted, appropriately resuscitated, back to baseline discharge home * In regards to acute toxic encephalopathy, CT head negative for acute intracranial process , seen by neurology cleared for discharge * in regards to reactive leukocytosis, appropriately resuscitated with fluid * In regards to seizure-like activity, neurology consulted * Patient's seizure was provoked due to cocaine use. No further neurological workup is indicated. * Patient was strongly recommended to abstain from polysubstance abuse, as they could be life-threatening. * Patient was recommended to avoid sleep deprivation. * transportation worker consultation for referral for counseling about substance abuse. * Patient was informed of [facility] law of no driving unless seizure free for 6 months, climbing ladders, operating dangerous machinery or unsupervised swimming. Patient's [id number] was also present, who also was informed of these restrictions. * Neurologically clear for discharge Patient Condition at Discharge: Fair Plan - Discharge Summary New Discharge Prescriptions: No Action No Known Home Medications Discharge Medication List No Known Home Medications 11/07/23 [History] Follow up Appointment(s)/Referral(s): None,Stated [Primary Care Provider] - [facility] - 1 Week Activity/Diet/Wound Care/Special Instructions: * Patient was strongly recommended to abstain from polysubstance abuse, as they could be life-threatening. * Patient was recommended to avoid sleep deprivation. * Per neurology recommendations [place] state law of no driving unless seizure free for 6 months, climbing ladders, operating dangerous machinery or unsupervised swimming. Discharge/Stand Alone Forms: AA Meetings [facility] - [facility], AA Meetings [facility], Outpatient Counseling, In Substance Abuse Facilities Discharge Disposition: HOME SELF-CARE
[2023-11-08 14:25] VITALS: BP 136/78; PULSE 86
== END 2023-11-08 14:22 | disposition home or self-care (01) ==
LOC: EC 17:21 → 3SCARD 22:28
PROVIDERS: ADMIT Internal Medicine; ATTEND Internal Medicine
DX: R56.9 Unspecified convulsions (principal); G92.8 Other toxic encephalopathy; T40.5X5A Adverse effect of cocaine, initial encounter; E87.20 Acidosis, unspecified; D72.829 Elevated white blood cell count, unspecified; J45.909 Unspecified asthma, uncomplicated; F17.290 Nicotine dependence, other tobacco product, uncomplicated
CPT/HCPCS: 96361 ×4; 96360 ×2; 99285; 36415; 93005; 80053; 82140; 83605; 80178; 83735; 85025; 81001; 81025; 80306; 80143; 80320; 80179; 70450; G0378 ×2; S4990